=== PATIENT | female | born 1975 | race Caucasian/White ===

== ENCOUNTER → 2024-10-05 | Outpatient (CLI) | payer OTHER ==
--- NOTE | 2024-10-05 17:01 | XR ---
EXAMINATION TYPE: XR thoracic spine complete DATE OF EXAM: 10/05/2024 2:38 PM COMPARISON: None. CLINICAL INDICATION: Female, 48 years old with history of M549 BACK PAIN, pain TECHNIQUE: 2 view(s) obtained. FINDINGS: There are 12 thoracic type vertebral bodies. Pedicles are intact. Disc heights are preserved. Vertebr al body heights are preserved. Alignment is unremarkable. IMPRESSION: 1. No acute osseous abnormalities thoracic spine. [facility], , 10/05/2024 4:59 PM
--- NOTE | 2024-10-05 17:07 | XR ---
EXAMINATION TYPE: XR lumbosacral spine min 4V DATE OF EXAM: 10/05/2024 2:38 PM COMPARISON: None. CLINICAL INDICATION: Female, 48 years old with history of M549 BACK PAIN, pain TECHNIQUE: 5 view(s) obtained. FINDINGS: There are 5 lumbar-type vertebral bodies. Pedicles are intact. Disc heights are preserved. Vertebral body heights are preserved. No spondylolytic defects are evident. Facets appear within normal limits. IMPRESSION: 1. Unremarkable 5 view lumbar spine [facility], , 10/05/2024 5:04 PM
== END | disposition home or self-care (01) ==
LOC: RADXRYALE 13:28
PROVIDERS: ATTEND Internal Medicine
DX: M54.9 Dorsalgia, unspecified (principal)
CPT/HCPCS: 72072; 72110